=== PATIENT | male | born 1980 | race Caucasian/White ===

== ENCOUNTER 2017-06-30 12:13 | Emergency (ER) | payer OTHER ==
[~2017-06-30] VITALS: Ht 172.7 cm; Wt 66.2 kg
[2017-06-30 12:14] VITALS: BP_SYST 147
[2017-06-30 13:11] VITALS: BP_SYST 130
== END 2017-06-30 13:10 | disposition home or self-care (01) ==
LOC: SED 12:13
DX: L03.221 Cellulitis of neck (principal)
CPT/HCPCS: 99283

== ENCOUNTER 2018-02-15 19:13 | Emergency (ER) | payer MEDICAID, OTHER ==
[~2018-02-15] VITALS: Ht 172.7 cm; Wt 63.5 kg
[2018-02-15 19:42] VITALS: BP_SYST 134
[2018-02-15] MEDS ORDERED: KETOROLAC TROMETHAMINE 30 MG VIAL IM ONE (20:30)
[2018-02-15 20:46] VITALS: BP_SYST 132
== END 2018-02-15 20:46 | disposition home or self-care (01) ==
LOC: SED 19:13
DX: S60.221A Contusion of right hand, initial encounter (principal); M79.7 Fibromyalgia; W01.198A Fall on same level from slipping, tripping and stumbling with subsequent striking against other object, initial encounter; Y93.89 Activity, other specified; Y92.89 Other specified places as the place of occurrence of the external cause; Y99.8 Other external cause status
CPT/HCPCS: 73130; 96372; 99284; J1885

== ENCOUNTER 2018-06-04 18:22 | Emergency (ER) | payer OTHER ==
[~2018-06-04] VITALS: Ht 172.7 cm; Wt 68.0 kg
[2018-06-04 18:22] VITALS: BP_SYST 127
[2018-06-04] MEDS ORDERED: KETOROLAC TROMETHAMINE 60 MG/2 ML VIAL IM ONE (19:15)
[2018-06-04] MEDS ORDERED: DEXAMETHASONE SOD PHOSPHATE 10 MG/ML VIAL IM ONE (19:15)
[2018-06-04 19:54] VITALS: BP_SYST 126
== END 2018-06-04 19:54 | disposition home or self-care (01) ==
LOC: SED 18:22
DX: M54.32 Sciatica, left side (principal); R03.0 Elevated blood-pressure reading, without diagnosis of hypertension; M79.7 Fibromyalgia
CPT/HCPCS: 96372; 99284; J1100; J1885

== ENCOUNTER 2018-11-09 12:02 | Emergency (ER) | payer SELFPAY ==
[~2018-11-09] VITALS: Ht 172.7 cm; Wt 73.5 kg
[2018-11-09 12:21] VITALS: BP_SYST 148
[2018-11-09 13:27] VITALS: BP_SYST 148
== END 2018-11-09 13:27 | disposition home or self-care (01) ==
LOC: SED 12:02
DX: L03.221 Cellulitis of neck (principal); R03.0 Elevated blood-pressure reading, without diagnosis of hypertension; M79.7 Fibromyalgia; F41.9 Anxiety disorder, unspecified; J45.909 Unspecified asthma, uncomplicated
CPT/HCPCS: 99283